=== PATIENT | female | born 1980 | race American Indian/Alaskan Native ===

== ENCOUNTER 2017-06-11 10:10 | Emergency (ER) | payer MEDICAID ==
[2017-06-11 10:23] VITALS: BP 123/76
[2017-06-11 10:52] LABS: Basophils % (Auto) 1.1 % (0.0-1.8); Eosinophils % (Auto) 1.2 % (0.0-4.3); Hematocrit 37.6 % (30.3-42.9); Hemoglobin 12.7 gm/dl (10.1-14.3); Mean Corpuscular HGB Conc 34 % (30-34); Mean Corpuscular Hemoglobin 33 pg (28-32); Mean Corpuscular Volume 96 fl (79-97); Platelet Count 220 K/mm3 (140-440); White Blood Count 7.3 K/mm3 (4.5-11.0)
[2017-06-11 10:59] LABS: Anion Gap 15 mmol/L; BUN/Creatinine Ratio 18.33; Blood Urea Nitrogen 11 mg/dL (7-17); Calcium 8.6 mg/dL (8.4-10.2); Carbon Dioxide 24 mmol/L (22-30); Chloride 102.4 mmol/L (98-107); Glucose 90 mg/dL (65-100); Potassium 3.8 mmol/L (3.6-5.0); Sodium 138 mmol/L (137-145)
[2017-06-11 11:21] LABS: Bilirubin,Urine NEG (Negative); Blood,Urine NEG (Negative); Ketones,Urine NEG (Negative); Leukocyte Esterase,Urine SM (Negative); Mucus,Urine 3+ /HPF; Nitrite,Urine NEG (Negative); Protein,Urine <15 mg/dL mg/dL (Negative); Urobilinogen,Urine < 2.0 mg/dL (<2.0)
--- NOTE | 2017-06-11 22:23 | Emergency Department Report ---
Entered by TIFFANIE QUIÑONES, acting as scribe for LIBAN MILLAN NP. ED Female HPI - General Chief complaint: Urogenital-Female Stated complaint: ABD PAIN/HEADACHE Time Seen by Provider: 06/11/17 12:04 Source: patient Mode of arrival: Ambulatory Limitations: No Limitations - History of Present Illness Initial comments: This is 36 y/o female that is nontoxic, well nourished in appearance, no acute signs of distress with a PMHx of hernia and total hysterectomy presents to the ED c/o lower pelvic pain that began 3 days ago. Rates pain an 8/10 in severity, which she describes as burning in quality. Aggravated with movement and urination, and alleviated with nothing. Associated vaginal discharge, but she denies nausea, vomiting, fever, chills, hematuria, dysuria, and urinary urgency and frequency. Notes Hx of bacterial infections. Reports being sexually active with 1 partner with protection, she notes a concern for an STD. Allergic to penicillins. MD Complaint: vaginal discharge, pelvic pain Onset/Timin -: days(s) Location: other (pelvic) Radiation: non-radiating Severity: severe Severity scale (0 -10): 8 Quality: burning Consistency: constant Improves with: none Worsens with: urination Are you Now?: No (hysterectomy in 2014) Associated Symptoms: denies other symptoms, vaginal discharge, abdominal pain ( pelvic pain). denies: vaginal bleeding, nausea/vomiting, fever/chills, headaches, loss of appetite, dysuria, hematuria, rash, seizure, shortness of breath, syncope, weakness - Related Data Sexually active: Yes (with protection) Previous Rx's Medication Instructions Recorded Last Taken Type metroNIDAZOLE [Flagyl] 500 mg PO Q12HR #14 tab 06/11/17 Unknown Rx Allergies Allergy/AdvReac Type Severity Reaction Status Date / Time latex AdvReac Hives Verified 06/11/17 10:17 Penicillins AdvReac Anaphylaxis Verified 06/11/17 10:17 ED Review of Systems Comment: All other systems reviewed and negative Constitutional: denies: chills, fever Eyes: denies: eye pain, eye discharge, vision change ENT: denies: ear pain, throat pain Respiratory: denies: cough, shortness of breath, wheezing Cardiovascular: denies: chest pain, palpitations Endocrine: no symptoms reported Gastrointestinal: abdominal pain (pelvic pain). denies: nausea, vomiting, diarrhea Genitourinary: discharge. denies: urgency, dysuria, frequency, hematuria, abnormal menses, dyspareunia Musculoskeletal: denies: back pain, joint swelling, arthralgia Skin: denies: rash, lesions Neurological: denies: headache, weakness, numbness, paresthesias ED Past Medical Hx - Past Medical History Previous Medical History?: Yes Additional medical history: Hernia - Surgical History Additional Surgical History: Hysterectomy - Social History Smoking Status: Former Smoker Substance Use Type: None - Medications Home Medications: Home Medications Medication Instructions Recorded Confirmed Last Taken Type metroNIDAZOLE [Flagyl] 500 mg PO Q12HR #14 tab 06/11/17 Unknown Rx ED Physical Exam - General Limitations: No Limitations General appearance: alert, in no apparent distress - Head Head exam: Present: atraumatic, normocephalic - Eye Eye exam: Present: normal appearance, PERRL, EOMI. Absent: scleral icterus, conjunctival injection, nystagmus Pupils: Present: normal accommodation - ENT ENT exam: Present: normal exam, normal orophraynx, mucous membranes moist, TM's normal bilaterally, normal external ear exam - Neck Neck exam: Present: normal inspection, full ROM. Absent: tenderness, meningismus, lymphadenopathy, thyromegaly - Respiratory Respiratory exam: Present: normal lung sounds bilaterally. Absent: respiratory distress, wheezes, rales, rhonchi, stridor, accessory muscle use, decreased breath sounds - Cardiovascular Cardiovascular Exam: Present: regular rate, normal rhythm, normal heart sounds. Absent: systolic murmur, diastolic murmur, rubs, gallop - GI/Abdominal GI/Abdominal exam: Present: soft, normal bowel sounds, hernia (reducible hernia to RUQ). Absent: distended, tenderness, guarding, rebound, rigid, hyperactive bowel sounds, hypoactive bowel sounds, organomegaly, mass, bruit, pulsatile mass - Rectal Rectal exam: Present: deferred - External exam: Present: normal external exam, other (package maker Jacinto Lyons present during exam). Absent: erythema, swelling, lesions, lacerations, ecchymosis, bleeding Speculum exam: Present: normal speculum exam, cervical discharge (clear white), other (package maker Jacinto Lyons present during exam). Absent: erythema, vaginal bleeding, foreign body, tissue, laceration Bi-manual exam: Present: normal bi-manual exam, other (package maker Jacinto Lyons present during exam) - Extremities Exam Extremities exam: Present: normal inspection, full ROM, normal capillary refill. Absent: tenderness, pedal edema, joint swelling, calf tenderness - Back Exam Back exam: Present: normal inspection, full ROM. Absent: tenderness, CVA tenderness (R), CVA tenderness (L), muscle spasm, paraspinal tenderness, vertebral tenderness, rash noted - Neurological Exam Neurological exam: Present: alert, oriented X3, CN II-XII intact, normal gait, reflexes normal. Absent: abnormal gait, motor sensory deficit - Psychiatric Psychiatric exam: Present: normal affect, normal mood - Skin Skin exam: Present: warm, dry, intact. Absent: rash ED Course Vital Signs 06/11/17 10:18 Temperature 98.6 F Pulse Rate 77 Respiratory 16 Rate Blood Pressure 123/76 O2 Sat by Pulse 100 Oximetry - Reevaluation(s) Reevaluation #1: 06/11/17 12:23 Patient is speaking in full sentences with no signs of distress ED Medical Decision Making - Lab Data Result diagrams: 06/11/17 10:30 06/11/17 10:30 - Medical Decision Making Ed course: This is a 36-year-old female that presents to the ED with tric 1- patient was examined by myself with package maker present. Wet prep indicates patient has Trichomonas. Gonorrhea/chlamydia results pending. Patient was instructed to return in 5 days to obtain results of her Chlamydia and medical records. Patient denies of medical treatment. 2- At time time of discharge, the patient does not seem toxic or ill in appearance. No acute signs of distress noted. Patient agrees to discharge treatment plan of care. No further questions noted by the patient. ED Disposition Clinical Impression: Trichomonas infection Disposition: DC-01 TO HOME OR SELFCARE Is pt being admited?: No Does the pt Need Aspirin: No Condition: Stable Instructions: Trichomoniasis (ED), Metronidazole (By mouth) Additional Instructions: Take full course of antibiotics was prescribed. Return in 5 days to medical records to obtain results of gonorrhea/chlamydia Prescriptions: metroNIDAZOLE [Flagyl] 500 mg PO Q12HR #14 tab Referrals: PRIMARY CARE, [Primary Care Provider] - 3-5 Days YUE GASTELUM MD [Staff Physician] - 3-5 Days AARON URENA MD [Staff Physician] - 3-5 Days [facility] [Outside] - 3-5 Days [facility] [Outside] - 3-5 Days Forms: Work/School Release Form(ED) This documentation as recorded by the ISHMAEL blankenship JASMINE,accurately reflects the service I personally performed and the decisions made by me,LIBAN MILLAN, CONFIGURATION MANAGEMENT ADMINISTRATOR.
== END 2017-06-11 13:24 | disposition home or self-care (01) ==
LOC: ED 10:10
DX: A59.9 Trichomoniasis, unspecified (principal); Z88.0 Allergy status to penicillin; Z91.040 Latex allergy status; Z87.891 Personal history of nicotine dependence
CPT/HCPCS: 36415; 80048; 81001; 81025; 85025; 87210; 87591; 99284